=== PATIENT | female | born 1970 | race Caucasian/White ===

== ENCOUNTER 2017-05-07 10:09 | Emergency (ER) | payer MEDICAID ==
--- NOTE | 2017-05-07 10:35 | ER Document Report ---
ED Medical Screen (RME) - General Chief Complaint: Abdominal Pain Stated Complaint: ABDOMINAL PAIN Time Seen by Provider: 05/07/17 10:33 Mode of Arrival: Ambulatory Information source: Patient TRAVEL OUTSIDE OF THE [place] IN LAST 30 DAYS: No - HPI Onset: Other - "MONTHS" Onset/Duration: Worse - LAST 2 DAYS Quality of pain: Other - TIGHTNESS Severity: Moderate Associated Symptoms: denies: Chills, Dysuria, Fever, Nausea, Vomiting Exacerbated by: Movement Relieved by: Denies Similar symptoms previously: No Recently seen / treated by doctor: No - NO PCP - Related Data Allergies/Adverse Reactions: ampicillin [Ampicillin] Allergy (Verified 05/07/17 10:10) Home Medications: Current Home Medications No Home Medications 05/07/17 [History] Past Medical History - General Information source: Patient - Social History Chew tobacco use (# tins/day): No Frequency of alcohol use: None Drug Abuse: None Lives with: Spouse/Significant other - Past Medical History Cardiac Medical History: Reports: Hx Hypercholesterolemia Renal/ Medical History: Denies: Hx Peritoneal Dialysis Psychiatric Medical History: Reports: Hx Depression Past Surgical History: Reports: Hx Abdominal Surgery - hernia repair, Hx Appendectomy, Hx Bowel Surgery, Hx Section - X3, Hx Cholecystectomy, Hx Hysterectomy - Immunizations Hx Diphtheria, Pertussis, Tetanus Vaccination: Yes Review of Systems - Review of Systems Constitutional: denies: Chills, Fever, Weight loss Gastrointestinal: See HPI Musculoskeletal: See HPI Neurological/Psychological: Depression Physical Exam - Vital signs Vitals: Temp Pulse Resp BP Pulse Ox 98.1 F 87 20 151/89 H 91 L 05/07/17 10:13 05/07/17 10:13 05/07/17 10:13 05/07/17 10:13 05/07/17 10:13 Interpretation: Hypertensive, Hypoxic - General General appearance: Appears well, Alert In distress: None Course - Vital Signs Vital signs: Temp Pulse Resp BP Pulse Ox 98.1 F 87 20 151/89 H 91 L 05/07/17 10:13 05/07/17 10:13 05/07/17 10:13 05/07/17 10:13 05/07/17 10:13
[2017-05-07 11:35] LABS: ABSOLUTE BASOPHILS # (AUTO) 0.1 10^3/uL (0.0-0.2); ABSOLUTE EOSINOPHILS # (AUTO) 0.2 10^3/uL (0.0-0.6); ABSOLUTE LYMPHOCYTES (AUTO) 2.6 10^3/uL (0.5-4.7); ABSOLUTE MONOCYTES (AUTO) 0.5 10^3/uL (0.1-1.4); ABSOLUTE NEUT (AUTO) 4.5 10^3/uL (1.7-8.2); BASOPHILS % (AUTO) 0.9 % (0-2); EOSINOPHILS % (AUTO) 3.1 % (0-6); HEMATOCRIT 41.5 % (36.0-47.0); HGB HCT DIFFERENCE 0.5; LYMPHOCYTES % (AUTO) 32.9 % (13-45); MEAN CORPUSCULAR HEMOGLOBIN 28.3 pg (27.0-33.4); MEAN CORPUSCULAR HGB CONC 33.8 g/dL (32.0-36.0); MEAN CORPUSCULAR VOLUME 84 fl (80-97); MONOCYTES % (AUTO) 6.6 % (3-13); RED BLOOD COUNT 4.96 10^6/uL (3.72-5.28); RED CELL DISTRIBUTION WIDTH 14.4 % (11.5-14.0); SEGMENTED NEUTROPHILS % (AUTO) 56.5 % (42-78); WHITE BLOOD COUNT 7.9 10^3/uL (4.0-10.5)
[2017-05-07 11:57] LABS: ALANINE AMINOTRANSFERASE 65 U/L (9-52); ALBUMIN 4.2 g/dL (3.5-5.0); ALKALINE PHOSPHATASE 84 U/L (38-126); ANION GAP 13 (5-19); ASPARTATE AMINO TRANSFERASE 79 U/L (14-36); BILIRUBIN,DIRECT 0.3 mg/dL (0.0-0.4); BILIRUBIN,TOTAL 0.7 mg/dL (0.2-1.3); BLOOD UREA NITROGEN 13 mg/dL (7-20); CALCIUM 9.5 mg/dL (8.4-10.2); CARBON DIOXIDE 31 mmol/L (22-30); CHLORIDE 98 mmol/L (98-107); CREATINE KINASE 69 U/L (30-135); CREATININE RESULT 0.69 mg/dL (0.52-1.25); GLUCOSE 115 mg/dL (75-110); POTASSIUM 4.3 mmol/L (3.6-5.0); SODIUM 142.3 mmol/L (137-145); TOTAL PROTEIN 7.2 g/dL (6.3-8.2)
--- NOTE | 2017-05-07 12:00 | ER Document Report ---
ED GI/ - General Chief Complaint: Abdominal Pain Stated Complaint: ABDOMINAL PAIN Time Seen by Provider: 05/07/17 10:33 Mode of Arrival: Ambulatory Notes: 46-year-old male who presents today with "months" of some upper and lower bilateral abdominal pain. She states it is been worse the last few days. She denies any fevers, vomiting, or diarrhea. She denies any aggravating or relieving factors. She denies any chest pain or shortness of breath. Patient states in 2009 at [facility] she had a hernia repair with resection and hysterectomy. She denies any bowel obstruction since that time. TRAVEL OUTSIDE OF THE [place] IN LAST 30 DAYS: No - HPI Patient complains to provider of: Other - See above Onset: Other - See above Timing/Duration: Gradual Quality of pain: Achy, Burning Severity at maximum: Moderate Severity in ED: Mild Pain Level: 2 Location: Other - See above Vaginal bleeding (Compared to normal period): None Sexual history: Inactive Associated symptoms: Other - See above Exacerbated by: Denies Relieved by: Denies Similar symptoms previously: Yes Recently seen / treated by doctor: No - Related Data Allergies/Adverse Reactions: ampicillin [Ampicillin] Allergy (Verified 05/07/17 10:10) Past Medical History - General Information source: Patient - Social History Smoking Status: Unknown if Ever Smoked Cigarette use (# per day): No Chew tobacco use (# tins/day): No Smoking Education Provided: No Frequency of alcohol use: None Drug Abuse: None Lives with: Spouse/Significant other Family History: Reviewed & Not Pertinent Patient has suicidal ideation: No Patient has homicidal ideation: No - Past Medical History Cardiac Medical History: Reports: Hx Hypercholesterolemia Renal/ Medical History: Denies: Hx Peritoneal Dialysis Psychiatric Medical History: Reports: Hx Depression Past Surgical History: Reports: Hx Abdominal Surgery - hernia repair, Hx Appendectomy, Hx Bowel Surgery, Hx Section - X3, Hx Cholecystectomy, Hx Hysterectomy - Immunizations Hx Diphtheria, Pertussis, Tetanus Vaccination: Yes Review of Systems - Review of Systems Constitutional: denies: Fever EENT: denies: Eye discharge, Nose discharge Cardiovascular: denies: Chest pain, Palpitations Respiratory: denies: Short of breath Gastrointestinal: denies: Vomiting Genitourinary: denies: Dysuria Musculoskeletal: denies: Leg swelling Skin: Other - no hives. denies: Rash Neurological/Psychological: Other - no slurred speech -: Yes All other systems reviewed and negative Physical Exam - Vital signs Vitals: Temp Pulse Resp BP Pulse Ox 98.1 F 87 20 151/89 H 91 L 05/07/17 10:13 05/07/17 10:13 05/07/17 10:13 05/07/17 10:13 05/07/17 10:13 Notes: Reviewed vital signs and nursing note as charted by RN. CONSTITUTIONAL: Alert and oriented and responds appropriately to questions. Well -appearing; well-nourished HEAD: Normocephalic; atraumatic EYES: Sclerae non-icteric ENT: Normal nose; no rhinorrhea; moist mucous membranes; pharynx without lesions noted NECK: Supple without meningismus CARD: Regular rate and rhythm; no murmurs RESP: Normal chest excursion without splinting or tachypnea; breath sounds clear and equal bilaterally; no wheezes, no rhonchi, no rales ABD/GI: Normal bowel sounds; very elevated BMI. Patient has an epigastric appearing hernia that she states has been present since her surgery in 2009. No obvious focal tenderness. No rebound or guarding. No abdominal bruits present BACK: The back appears normal and is non-tender to palpation, there is no CVA tenderness EXT: Normal ROM in all joints; non-tender to palpation; no cyanosis, no effusions, no edema SKIN: Normal color for age and race; warm; dry; good turgor; capillary refill < 2 seconds; no acute lesions noted NEURO: Moves all extremities equally; Motor and sensory function intact PSYCH: The patient's mood and manner are appropriate. Grooming and personal hygiene are appropriate. Course - Re-evaluation Re-evalutation: 05/07/17 11:59 Given the history and physical examination we will order basic labs, abdominal labs, urinalysis, and CT scan of the abdomen and pelvis. We will reassess the patient's abdomen. I would like to evaluate for pancreatitis, liver abnormality , obstruction, or other acute intra-abdominal pathology. 05/07/17 12:01 X-ray of the abdomen shows a persistent right-sided elevated hemidiaphragm. No signs of bowel obstruction. 05/07/17 13:55 CT scan as recorded. Patient has artery had a cholecystectomy. Urinalysis as recorded. Urine culture has been sent. I will start the patient on antibiotics with strict return precautions as well as a short course of pain medications. - Vital Signs Vital signs: Temp Pulse Resp BP Pulse Ox 98.1 F 87 20 151/89 H 91 L 05/07/17 10:13 05/07/17 10:13 05/07/17 10:13 05/07/17 10:13 05/07/17 10:13 - Laboratory Result Diagrams: 05/07/17 11:20 05/07/17 11:20 Laboratory results interpreted by me: 05/07/17 05/07/17 05/07/17 11:20 11:20 11:20 RDW 14.4 H Carbon Dioxide 31 H Glucose 115 H AST 79 H ALT 65 H Urine Blood MODERATE H Ur Leukocyte Esterase TRACE H Discharge - Discharge Clinical Impression: Abdominal discomfort UTI (urinary tract infection) Qualifiers: Urinary tract infection type: acute cystitis Hematuria presence: without hematuria Qualified Code(s): N30.00 - Acute cystitis without hematuria Condition: Good Disposition: HOME, SELF-CARE Instructions: Urinary Tract Infection ([facility]), Abdominal Pain ([facility]) Additional Instructions: Come back immediately for any increased pain, fevers, vomiting, excessive diarrhea, or any other acute problems. Please make sure that she follow-up with your primary doctor regarding the urine culture as we have discussed. Prescriptions: Hydrocodone/Acetaminophen [Drake 5-325 Tablet] 1 each PO Q6 PRN #12 tablet PRN Reason: For Pain Ondansetron [Zofran Odt 4 mg Tablet] 1 tab PO Q6H #15 tab.rapdis Sulfamethoxazole/Trimethoprim [Bactrim Ds Tablet] 1 each PO BID #20 tablet
--- NOTE | 2017-05-07 12:30 | RADIOLOGY REPORT (SQ) ---
EXAM DESCRIPTION: ACUTE ABDOMEN SERIES COMPLETED DATE/TIME: 05/07/2017 12:09 pm REASON FOR STUDY: ABD. PAIN COMPARISON: None. NUMBER OF VIEWS: Three views. TECHNIQUE: Frontal chest, supine abdomen and upright/decubitus abdomen radiographic images acquired. LIMITATIONS: None. FINDINGS: CHEST: No infiltrates. The right hemidiaphragm is elevated. FREE AIR: None. No abnormal gas collections. BOWEL GAS PATTERN: Nonobstructive pattern. No dilated loops or air fluid levels. CALCIFICATIONS: No suspicious calcifications. HARDWARE: None in the abdomen. SOFT TISSUES: No gross mass or suggestion of organomegaly. BONES: No acute fracture. No worrisome bone lesions. OTHER: No other significant finding. IMPRESSION: NO RADIOGRAPHIC EVIDENCE FOR ACUTE ABDOMINAL DISEASE. TECHNICAL DOCUMENTATION: JOB ID: [id number] [employer]- All Rights Reserved
--- NOTE | 2017-05-07 12:54 | RADIOLOGY REPORT (SQ) ---
EXAM DESCRIPTION: CT ABD/PELVIS WITH IV ONLY COMPLETED DATE/TIME: 05/07/2017 12:36 pm REASON FOR STUDY: 41, bilateral abdominal pain, upper and lower COMPARISON: None. TECHNIQUE: CT scan of the abdomen and pelvis performed using helical scanning technique with dynamic intravenous contrast injection. No oral contrast. Images reviewed with lung, soft tissue, and bone windows. Reconstructed coronal and sagittal MPR images reviewed. Delayed images for evaluation of the urinary system also acquired. All images stored on PACS. All CT scanners at this facility use dose modulation, iterative reconstruction, and/or weight based d osing when appropriate to reduce radiation dose to as low as reasonably achievable (ALARA). [facility]: Dose Right [facility]: CareDose [facility]: Dose Right [facility]: Teradose 4D [facility]: CloudSafe CONTRAST TYPE AND DOSE: 100 cc Isovue 370- low osmolar. RENAL FUNCTION: Creatinine 0.7 BUN 13 RADIATION DOSE: . LIMITATIONS: None. FINDINGS: LOWER CHEST: No significant findings. No nodules or infiltrates. LIVER: Enlarged. Decreased attenuation. No masses. SPLEEN: Normal size. No focal lesions. PANCREAS: No masses. No significant calcifications. No adjacent inflammation or peripancreatic fluid collections. Pancreatic duct not dilated. GALLBLADDER: Surgically absent. ADRENAL GLANDS: No significant masses or asymmetry. RIGHT KIDNEY AND URETER: No solid masses. No significant calcifications. No hydronephrosis or hyd roureter. LEFT KIDNEY AND URETER: No solid masses. No significant calcifications. No hydronephrosis or hydr oureter. AORTA AND VESSELS: No aneurysm. No dissection. Renal arteries, SMA, celiac without stenosis. RETROPERITONEUM: No retroperitoneal adenopathy, hemorrhage or masses. BOWEL AND PERITONEAL CAVITY: Diverticula arise from the distal transverse colon, descending colon, an d sigmoid colon. No acute inflammatory changes are present. By history there has been a partial bow el resection. Suture is seen in the bowel in the midline on images 59 through 66. APPENDIX: Surgically absent. PELVIS: Uterus is absent. Urinary bladder is normal. ABDOMINAL WALL: There is a 35 mm wide ventral hernia seen on image 51 series 5. This contains only m esenteric fat BONES: Grade 1 anterolisthesis of L5 on S1. No osseous lesions are seen. OTHER: No other significant finding. IMPRESSION: 1. Marked hepatomegaly with fatty infiltration. 2. Diverticulosis coli. 3. Ventral hernia contains only fat. 4. Osseous findings as described. TECHNICAL DOCUMENTATION: JOB ID: [id number] Quality ID # [id number]: Final reports with documentation of one or more dose reduction techniques (e.g., Au tomated exposure control, adjustment of the mA and/or kV according to patient size, use of iterative reconstruction technique) 2010 [employer]- All Rights Reserved
[2017-05-07 13:12] LABS: APPEARANCE,URINE CLEAR; BILIRUBIN,URINE NEGATIVE (NEGATIVE); GLUCOSE, URINE NEGATIVE (NEGATIVE); KETONES,URINE NEGATIVE (NEGATIVE); LEUKOCYTE ESTERASE,URINE TRACE (NEGATIVE); NITRITE,URINE NEGATIVE (NEGATIVE); PROTEIN,URINE NEGATIVE (NEGATIVE); URINE SPECIFIC GRAVITY 1.005; UROBILINOGEN,URINE NEGATIVE mg/dL (<2.0)
[2017-05-07 14:21] VITALS: BP 124/70
== END 2017-05-07 14:22 | disposition home or self-care (01) ==
LOC: ER 10:09
DX: N30.00 Acute cystitis without hematuria (principal); R10.9 Unspecified abdominal pain; R10.31 Right lower quadrant pain; R10.32 Left lower quadrant pain
CPT/HCPCS: 36415; 74022; 74177; 80053; 81001; 82550; 83690; 85025; 87086; 87088; 87186; 99284

== ENCOUNTER 2017-07-17 13:53 | Emergency (ER) | payer MEDICAID ==
[2017-07-17 14:48] VITALS: BP 115/89
[2017-07-17] MEDS ORDERED: DEXAMETHASONE SOD PHOS INJ 10 MG/1 ML VIAL IM ONE (15:05)
--- NOTE | 2017-07-17 15:06 | ER Document Report ---
HPI - HPI Pain Level: 3 Notes: Patient is a 47-year-old female with a history of type 2 diabetes and obesity as well as former smoking who presents to the ED complaining of a dry nonproductive cough, fever, body ache 3 days. Patient states that she does have a nebulizer machine at home but has not had use it. She is eating and drinking without difficulties. She is urinating normally and having normal bowel movements. Patient states that she is ambulatory without any worsening symptoms or dyspnea on exertion. Patient has not been using any over-the- counter meds for her symptoms. Denies any headache, neck pain, sore throat, chest pain, palpitations, syncope, shortness of breath, wheeze, dyspnea, abdominal pain, nausea/vomiting/diarrhea, urinary retention, dysuria, hematuria , or rash. - ROS Systems Reviewed and Negative: Yes All other systems reviewed and negative - REPRODUCTIVE Reproductive: DENIES: : Past Medical History - Social History Smoking Status: Former Smoker Family History: Reviewed & Not Pertinent - Past Medical History Cardiac Medical History: Reports: Hx Hypercholesterolemia Renal/ Medical History: Denies: Hx Peritoneal Dialysis Psychiatric Medical History: Reports: Hx Depression Past Surgical History: Reports: Hx Abdominal Surgery - hernia repair, Hx Appendectomy, Hx Bowel Surgery, Hx Section - X3, Hx Cholecystectomy, Hx Hysterectomy - Immunizations Hx Diphtheria, Pertussis, Tetanus Vaccination: Yes Vertical Provider Document - CONSTITUTIONAL Agree With Documented VS: Yes Notes: PHYSICAL EXAMINATION: GENERAL: Well-appearing, well-nourished and in no acute distress. A&Ox4. Answers questions appropriately. Moves comfortably w/o notable distress HEAD: Atraumatic, normocephalic. EYES: Pupils equal round and reactive to light, extraocular movements intact, sclera anicteric, conjunctiva are normal. ENT: EAC clear b/l. TM's intact b/l without erythema, fluid, or perforation. Nares patent and with clear discharge. oropharynx no erythema without exudates. No tonsilar hypertrophy without erythema or exudate. No palatine shift. Uvula midline. No tongue protrusion. No drooling, hoarseness, or airway compromise. Moist mucous membranes. No sinus tenderness. NECK: Normal range of motion, supple without lymphadenopathy. No rigidity/ meningismus. LUNGS: very scant wheeze left side on expiration only. Lungs clear otherwise. No retractions HEART: Regular rate and rhythm without murmurs, rubs, gallops. ABDOMEN: Soft, nontender, nondistended abdomen. No guarding, no rebound. No masses appreciated. Normal bowel sounds present. No CVA tenderness bilaterally. No hepatosplenomegaly. NEUROLOGICAL: Normal speech, normal gait. Normal sensory, motor exams PSYCH: Normal mood, normal affect. SKIN: Warm, Dry, normal turgor, no rashes or lesions noted. - INFECTION CONTROL TRAVEL OUTSIDE OF THE [place] IN LAST 30 DAYS: No - RESPIRATORY O2 Sat by Pulse Oximetry: 94 Course - Re-evaluation Re-evalutation: 07/17/17 15:03 Patient is an afebrile, well-hydrated, 47-year-old female who presents to the ED with acute URI, suspect influenza. Vitals are stable. PE is otherwise unremarkable. No labs or imaging warranted at this time based on H&P. I did thoroughly review the risks and benefits as well as side effects of Tamiflu and her risk factors of obesity, former smoking, and diabetes. Patient declined Tamiflu at this time. Patient's lungs are clear to auscultation bilaterally without tachycardia, hypoxia, or tachypnea. Patient is tolerating p.o. without any difficulties. I will send her home with a prescription for Tessalon and albuterol nebulizer. Decadron given today. Low suspicion for any meningitis, sepsis, peritonsillar/pharyngeal abscess, respiratory compromise, severe dehydration, or other emergent systemic condition at this time. Patient is aware this condition can change from initial presentation and she needs to monitor symptoms closely. Conservative measures otherwise for symptoms. Recheck with your PCM in 3-5 days. Return to the ED with any worsening/ concerning symptoms otherwise as reviewed in discharge. Patient is in agreement. - Vital Signs Vital signs: Temp Pulse Resp BP Pulse Ox 98.4 F 99 20 115/89 H 94 07/17/17 14:07 07/17/17 14:07 07/17/17 14:07 07/17/17 14:07 07/17/17 14:07 Discharge - Discharge Clinical Impression: Acute URI Condition: Stable Disposition: HOME, SELF-CARE Instructions: Upper Respiratory Illness ([facility]), Influenza ([facility]) Additional Instructions: Maintain adequate fluid intake Take meds as directed tylenol/ibuprofen as needed over the counter cold medication as needed for symptoms Humidified air may help Wash your hands regularly Wear a mask when coughing F/u: with your PCM in 3-5 days for a recheck Return to the ED with any fever, worsening pain, chest pain, palpitations, syncope, worsening MACHUCA, neck pain/stiffness, shortness of breath, wheezing, drooling, trouble swallowing/breathing, abdominal pain, n/v/d, rash, or worsening/concerning symptoms otherwise. Prescriptions: Benzonatate [Tessalon Perle 100 mg Capsule] 100 mg PO Q8HP PRN #15 cap PRN Reason: Albuterol Sulfate [Albuterol Sulfate 2.5mg/3 mL] 1 vial IH Q4 PRN #10 vial PRN Reason: Forms: Elevated Blood Pressure Referrals: YANICK BRANDON FNP-C [NO LOCAL MD] - Follow up in 3-5 days
== END 2017-07-17 16:08 | disposition home or self-care (01) ==
LOC: ER 13:53
DX: J06.9 Acute upper respiratory infection, unspecified (principal); E11.9 Type 2 diabetes mellitus without complications; E66.9 Obesity, unspecified; R05 Cough; R50.9 Fever, unspecified; M79.1 Myalgia; Z87.891 Personal history of nicotine dependence
CPT/HCPCS: 99283; 96372; J1100

== ENCOUNTER 2017-08-02 09:17 | Emergency (ER) | payer MEDICAID ==
--- NOTE | 2017-08-02 09:54 | ER Document Report ---
ED General - General Chief Complaint: Cough Stated Complaint: CONGESTION, COUGH, BACK PAIN Time Seen by Provider: 08/02/17 09:51 Mode of Arrival: Ambulatory Information source: Patient Notes: Patient is a 47 year old female with PMHx of obesity, type II DM (controlled on metformin), former smoker who presents with 2 week history of intermittent nonproductive cough, chest congestion, and back pain worse with cough. States she was seen here 2 weeks ago, no testing or xrays were done; she initially felt better and then the symptoms returned. She states at that time she had fever (Tmax 101.7F) but has not had any since. Denies chest pain, SOB, headache , neck/pain stiffness, n/v/d. She has tried multiple OTC medications with no relief. Speaking in full sentences without difficulty. TRAVEL OUTSIDE OF THE [place] IN LAST 30 DAYS: No - Related Data Allergies/Adverse Reactions: ampicillin [Ampicillin] Allergy (Verified 07/17/17 13:55) Past Medical History - General Information source: Patient - Social History Smoking Status: Former Smoker Family History: Reviewed & Not Pertinent - Past Medical History Cardiac Medical History: Reports: Hx Hypercholesterolemia Renal/ Medical History: Denies: Hx Peritoneal Dialysis Psychiatric Medical History: Reports: Hx Depression Past Surgical History: Reports: Hx Abdominal Surgery - hernia repair, Hx Appendectomy, Hx Bowel Surgery, Hx Section - X3, Hx Cholecystectomy, Hx Hysterectomy - Immunizations Hx Diphtheria, Pertussis, Tetanus Vaccination: Yes Review of Systems - Review of Systems Constitutional: See HPI EENT: See HPI Cardiovascular: No symptoms reported Respiratory: See HPI Gastrointestinal: No symptoms reported Genitourinary: No symptoms reported Female Genitourinary: No symptoms reported Musculoskeletal: See HPI Skin: No symptoms reported Hematologic/Lymphatic: No symptoms reported Neurological/Psychological: No symptoms reported Physical Exam - Vital signs Vitals: Temp Pulse Resp BP Pulse Ox 98.5 F 97 18 115/66 93 08/02/17 09:22 08/02/17 09:22 08/02/17 09:22 08/02/17 09:22 08/02/17 09:22 - Notes Notes: PHYSICAL EXAM: CONSTITUTIONAL: Alert and oriented, well-appearing and in no acute distress. Speaking in full sentences without difficulty. HENT: Normocephalic, atraumatic. Ear canals without erythema or foreign body, TMs pearly adair with good bony landmarks. Nares clear without erythema, septal hematoma or deviation, airway patent. Oropharynx clear without erythema, tonsilar exudate or malocclusion. Trachea midline. Uvula midline. Moist mucous membranes. EYES: Pupils equal round and reactive to light, EOM intact. Sclera anicteric, conjunctiva are normal. No entrapment. NECK: supple without lymphadenopathy. No midline tenderness or paraspinous muscle spasms. No step-offs or deformities. ROM intact. HEART: Regular rate and rhythm without murmurs. LUNGS: CTAB and equal. No wheezes, rales or rhonchi. Non-productive cough noted during exam. GI: Obese. Normactive bowel sounds. Nontender, non-distended. No organomegaly. no CVAT. BACK: FROM to passive/active. Strength 5+/5. No vertebral point tenderness, step -offs, or deformities. EXTREMITIES: no bony tenderness, erythema, edema, ecchymosis or deformity. Normal range of motion, no pitting edema. No cyanosis. Cap Refill <3 seconds. NEURO: Cranial nerves grossly intact. Normal sensory/motor exams. PSYCH: Normal mood, normal affect. SKIN: Warm and dry. Normal turgor. No rashes or lesions noted. Course - Re-evaluation Re-evalutation: 08/02/17 09:54 Patient seen and examined. Well appearing, well hydrated, non-toxic in appearance. Speaking in full sentences without difficulty, nonproductive cough noted intermittently during exam. Lungs CTAB, patient requesting duoneb. Will obtain CXR. 08/02/17 11:14 Reviewed imaging and results - negative for acute abnormalities; discussed with patient. Will treat as bronchitis. Low suspicion at this time for PE, PNA, ACS, AAA, sepsis or other emergent conditions. At this time, will discharge with return precautions and follow-up recommendations. Verbal discharge instructions given at the bedside and opportunity for questions given. Medication warnings reviewed. Patient is in agreement with this plan and has verbalized understanding of return precautions and the need for primary care follow-up in the next 24-72 hours. - Vital Signs Vital signs: Temp Pulse Resp BP Pulse Ox 98.5 F 97 18 115/66 93 08/02/17 09:22 08/02/17 09:22 08/02/17 09:22 08/02/17 09:22 08/02/17 09:22 - Diagnostic Test Radiology reviewed: Image reviewed, Reports reviewed Discharge - Discharge Clinical Impression: Acute bronchitis Qualifiers: Bronchitis organism: unspecified organism Qualified Code(s): J20.9 - Acute bronchitis, unspecified Condition: Stable Disposition: HOME, SELF-CARE Additional Instructions: BRONCHITIS: You have acute bronchitis. This disease is an infection or inflammation of the air passageways in your lungs. Symptoms usually include cough, low grade fever, shortness of breath, and wheezing. The cough usually persists for a couple of weeks. Most cases of bronchitis get better without antibiotics. We prescribe antibiotics when we believe bacteria are damaging your airways, or if there's high risk the bronchitis will worsen into pneumonia. Increase your fluid intake. A cool mist humidifier may make your lungs more comfortable. An expectorant (cough medicine that loosens phlegm) can help. If you smoke, STOP!!! Recovery from bronchitis can be somewhat slow, but you should see improvement within a day or two. Repeated episodes of bronchitis may result in lung damage -- for example, chronic bronchitis, recurrent pneumonias, or emphysema. Call the doctor if you develop increasing fever, shortness of breath, chest pain, bloody sputum, or otherwise worsen. If you have not improved at all after several days, contact the physician. BRONCHITIS WITH BRONCHOSPASM (WHEEZING): You have bronchitis with bronchospasm (wheezing). Sometimes people develop wheezing with a chest cold. This occurs either because of an underlying tendency toward asthma or because the virus itself irritates the bronchial tubes. This irritation causes cough, shortness of breath, and wheezing. Emergency treatment of bronchospasm may include adrenaline shots or bronchodilator aerosol. You may feel lightheaded and have a rapid pulse for an hour or two. Rest and get plenty of fluids. At home, we'll treat you with a bronchodilator inhaler. Corticosteroids may be required for some patients. Until you recover, avoid chemical fumes, dusts, pollens, and exercising in very cold or dry air. If you smoke, stop now! Most cases of bronchitis get better without antibiotics. We prescribe antibiotics when we believe bacteria are damaging your airways, or if there's high risk the bronchitis will worsen into pneumonia. Increase your fluid intake. A cool mist humidifier may make your lungs more comfortable. An expectorant (cough medicine that loosens phlegm) can help. Repeated episodes of bronchitis and bronchospasm may result in lung damage -- for example, chronic bronchitis, recurrent pneumonias, or emphysema. If you develop a fever, increased wheezing, chest pain, or severe shortness of breath, you should contact the doctor immediately. DECONGESTANT MEDICATION: A decongestant medicine has been prescribed. Often this medicine is combined in the same tablet with an antihistamine or expectorant. This type of medicine is helpful in treating a bad cold or sinus condition, as well as in treatment of the nasal congestion of hay fever. It is not of much benefit for lung infections. Decongestant medicines are related to stimulants. They can cause an increase in blood pressure and heart rate. Persons with heart disease and high blood pressure should not take decongestants without discussing this with the physician. If you develop palpitations, chest pain, headache, or tremors, stop the medicine and consult your physician. COUGH-SUPPRESSANT & EXPECTORANT MEDICATION: You are to use a cough medication as needed for relief of symptoms. This medicine is a combination of an expectorant (to make the mucous thinner and more easily "coughed up") and a cough suppressant (to reduce the frequency of coughing). The cough-suppressant medicine is related to narcotics. You may experience mild nausea and sleepiness. Some patients who are very sensitive to narcotics may have stomach pain from this medicine. Taking the medicine with food reduces these side effects. Do not drive or work with machinery until you know how this medicine affects you. The expectorant should have no side effects. Iodine-containing expectorants (such as organidin) should not be taken by persons with active thyroid disease unless approved by your doctor. Call the doctor if you develop shortness of breath, hives, rash, itching, lightheadedness, or severe nausea and vomiting. INHALED BRONCHODILATORS: You have received a treatment of and/or prescription for an inhaled bronchodilator -- a medication which stimulates the airways in the lung to dilate. This improves the flow of air in asthma, bronchitis, and emphysema. These medicines have some similarity to adrenaline, and can cause similar side effects: shakiness, racing heart, and a sense of nervousness. These side effects decrease with time. Contact your doctor if these side effects are severe. Do not over-use the medicine. Too-frequent use of the inhaler may make it ineffective. Call your doctor if the inhaler is not controlling your symptoms at the prescribed doses. STEROID MEDICATION: You have been given an injection of or oral medicine of the cortisone/ steroid class. This medication is used to control inflammation or allergy. Cruz t is usually only given for a short period of time, until the acute process subsides. There are usually no side effects from short-term use of cortisone-like medications. Some persons feel an increased sense of well-being and are not sleepy at bedtime. Long-term use of cortisone medications is best avoided, unless required for a severe condition. If your condition does not remit, or relapses after the course of corticosteroid medication, you should consult your physician. ANTIBIOTIC THERAPY: You have been given an antibiotic prescription. It's important that you take all the medication, unless instructed otherwise by your physician. Failure to complete the entire course can result in relapse of your condition. Common side effects of antibiotics include nausea, intestinal cramping, or diarrhea. Women may develop vaginal yeast infections, and babies can get yeast (thrush) in the mouth following the use of antibiotics. Contact your physician if you develop significant side effects from this medication. Allergy to this antibiotic can result in hives, wheezing, faintness, or itching. If symptoms of allergy occur, stop the medication and call your doctor. AMOXICILLIN: Amoxicillin is a member of the penicillin family. It covers the germs likely to cause ear, bronchial, and urinary infections better than plain penicillin. Amoxicillin can be taken without regard to meals. Nausea after taking the medication is rare, but can occur. Diarrhea can occur, particularly in small children. Vaginal yeast infections and oral thrush in infants are also common. Contact your physician if these problems occur. Allergy to penicillins is common. If you have had an allergic reaction to any drug of the penicillin family, you should never take any other penicillin. Notify your doctor at once if you develop hives, itching, swelling, faintness, or shortness of breath. Less serious side effects can include nausea or diarrhea. USE OF ACETAMINOPHEN (Tylenol): Acetaminophen may be taken for pain relief or fever control. It's much safer than aspirin, offering a wider range of "safe" dosages. It is safe during . Some brand names are Tylenol, Panadol, Datril, Anacin 3, Tempra, and Liquiprin. Acetaminophen can be repeated every four hours. The following are maximum recommended dosages: >89 pounds or adults 650 mg to 900 mg Acetaminophen can be repeated every four hours. Maximum dose not to exceed 4000 mg a day. SMOKING: If you smoke, you should stop smoking. The tar and chemicals in cigarette smoke are harmful. Smoking has been shown to cause: emphysema chronic bronchitis lung cancer mouth and throat cancer stomach and pancreas cancer premature aging defects In addition, smoking increases ear and lung infections in children of smokers. FOLLOW-UP CARE: If you have been referred to a physician for follow-up care, call the physician s office for an appointment as you were instructed or within the next two days. If you experience worsening or a significant change in your symptoms, notify the physician immediately or return to the Emergency Department at any time for re-evaluation. Prescriptions: Guaifenesin/D-Methorphan Hb [Guaifenesin-Dextromethorph Tab] 1 each PO Q12HP PRN #8 tab.sr.[id number] PRN Reason: Cough Albuterol Sulfate [Proair HFA Inhalation Aerosol 8.5 gm MDI] 2 puff IH Q4H PRN # 1 mdi PRN Reason: Azithromycin [Zithromax 250 mg Tablet] 250 mg PO ASDIR #6 tablet Methylprednisolone [Medrol Dosepack (4 mg/Tab) 21 Tab/Dosepak] 4 mg PO ASDIR PRN #21 tab.ds.pk PRN Reason:
[2017-08-02] MEDS ORDERED: IPRATROPIUM/ALBUTEROL 0.5-2.5 MG/3 ML AMPUL NEB ONE (10:04)
[2017-08-02] MEDS ORDERED: BENZONATATE 100 MG CAPSULE PO ONE (10:05)
--- NOTE | 2017-08-02 10:56 | RADIOLOGY REPORT (SQ) ---
EXAM DESCRIPTION: CHEST PA/LAT COMPLETED DATE/TIME: 08/02/2017 10:48 am REASON FOR STUDY: cough, congestion COMPARISON: 03/11/2016 EXAM PARAMETERS: NUMBER OF VIEWS: two views TECHNIQUE: Digital Frontal and Lateral radiographic views of the chest acquired. RADIATION DOSE: NA LIMITATIONS: none FINDINGS: LUNGS AND PLEURA: Stable elevation right hemidiaphragm with associated atelectasis. Lungs and pleural spaces otherwise clear. MEDIASTINUM AND HILAR STRUCTURES: No masses or contour abnormalities. HEART AND VASCULAR STRUCTURES: Heart stable in size. No evidence for failure. BONES: No acute findings. HARDWARE: None in the chest. OTHER: No other significant finding. IMPRESSION: NO ACUTE CARDIOPULMONARY PROCESS. NO SIGNIFICANT CHANGE FROM PRIOR STUDY TECHNICAL DOCUMENTATION: JOB ID: [id number] [employer]- All Rights Reserved Reading location - IP/workstation name: [email or web address]
[2017-08-02 11:52] VITALS: BP 112/57
== END 2017-08-02 11:54 | disposition home or self-care (01) ==
LOC: ER 09:17
DX: J20.9 Acute bronchitis, unspecified (principal); R05 Cough; R09.81 Nasal congestion; M54.9 Dorsalgia, unspecified; E66.9 Obesity, unspecified; E11.9 Type 2 diabetes mellitus without complications; R09.89 Other specified symptoms and signs involving the circulatory and respiratory systems; Z87.891 Personal history of nicotine dependence
CPT/HCPCS: 94640; 99283; 71046; J3490; J7620

== ENCOUNTER 2017-10-18 08:52 | Emergency (ER) | payer MEDICAID ==
[2017-10-18 08:59] VITALS: BP 124/74
[2017-10-18] MEDS ORDERED: IBUPROFEN 800 MG TABLET PO ONE (09:24)
--- NOTE | 2017-10-18 09:30 | ER Document Report ---
ED Extremity Problem, Lower - General Chief Complaint: Knee Pain Stated Complaint: RIGHT KNEE PAIN Time Seen by Provider: 10/18/17 09:14 Mode of Arrival: Ambulatory Information source: Patient Notes: 47-year-old female presents to ED for complaint of pain and injury to the right knee. She states that 2 days ago she was walking her dog and the dog lunged for the mailman. She states when the dog lunch she felt a pop in the back of her knee and is been hurting since then which was on Thursday. She states she has not been seen by a provider and is been taken naproxen and Tylenol but has not had any medications this morning. She is able to walk has full range of motion to the knee has tenderness to the medial and posterior aspects of the knee. She is alert oriented, pupils equal and react to light, speaks in full sentences, and is able to walk with steady gait. TRAVEL OUTSIDE OF THE [place] IN LAST 30 DAYS: No - HPI Patient complains to provider of: Injury, Pain Location: Knee - Right Occurred: Other - Thursday which was 2 days ago Where: Outdoors, Public place Onset/Duration: Persistent Quality of pain: Achy, Sharp Severity: Moderate Pain Level: 2 Context: Other - Lunged when the dog tried to get away here in a pop in the back of her knee Recent injury: Possibly Associated symptoms: Knott a pop Exacerbated by: Hanging down, Movement, Walking Relieved by: Nothing, Other - Warm - Related Data Allergies/Adverse Reactions: ampicillin [Ampicillin] Allergy (Verified 07/17/17 13:55) Past Medical History - General Information source: Patient - Social History Smoking Status: Former Smoker Cigarette use (# per day): No Chew tobacco use (# tins/day): No Smoking Education Provided: No Frequency of alcohol use: None Drug Abuse: None Occupation: Disabled Lives with: Spouse/Significant other Family History: Reviewed & Not Pertinent Patient has suicidal ideation: No Patient has homicidal ideation: No - Past Medical History Cardiac Medical History: Reports: Hx Hypercholesterolemia, Hx Hypertension Pulmonary Medical History: Reports: None EENT Medical History: Reports: None Neurological Medical History: Reports: None Endocrine Medical History: Reports: Hx Diabetes Mellitus Type 2 Renal/ Medical History: Reports: Other - States she has had her left ovary left tube and uterus removed has cervix Malignancy Medical History: Reports: None GI Medical History: Reports: None Musculoskeltal Medical History: Reports Hx Musculoskeletal Trauma - Fractured pelvis fractured ribs Skin Medical History: Reports None Psychiatric Medical History: Reports: None, Hx Depression Traumatic Medical History: Reports: Hx Fractures - Pelvis and ribs Infectious Medical History: Reports: None Past Surgical History: Reports: Hx Abdominal Surgery, Hx Appendectomy, Hx Bowel Surgery - Bowel resection, Hx Section - X3, Hx Cholecystectomy, Hx Hysterectomy, Hx Inguinal Hernia, Hx Oral Surgery - Multiple teeth removed, Hx Umbilical Hernia - Immunizations Hx Diphtheria, Pertussis, Tetanus Vaccination: Yes Review of Systems - Review of Systems Constitutional: No symptoms reported EENT: No symptoms reported Cardiovascular: No symptoms reported Respiratory: No symptoms reported Gastrointestinal: No symptoms reported Genitourinary: No symptoms reported Female Genitourinary: No symptoms reported Musculoskeletal: Joint pain - Right knee pain to the lateral posterior aspects Skin: No symptoms reported Hematologic/Lymphatic: No symptoms reported Neurological/Psychological: No symptoms reported Physical Exam - Vital signs Vitals: Temp Pulse Resp BP Pulse Ox 97.9 F 95 20 124/74 90 L 10/18/17 08:58 10/18/17 08:58 10/18/17 08:58 10/18/17 08:58 10/18/17 08:58 Interpretation: Normal - General General appearance: Appears well, Alert - HEENT Head: Normocephalic, Atraumatic Eyes: Normal Pupils: PERRL - Respiratory Respiratory status: No respiratory distress Chest status: Nontender Breath sounds: Normal Chest palpation: Normal - Cardiovascular Rhythm: Regular Heart sounds: Normal auscultation Murmur: No - Abdominal Inspection: Normal Distension: No distension Bowel sounds: Normal Tenderness: Nontender Organomegaly: No organomegaly - Back Back: Normal, Nontender - Extremities General upper extremity: Normal inspection, Nontender, Normal color, Normal ROM , Normal temperature General lower extremity: Normal color, Normal ROM, Normal temperature, Normal weight bearing. No: Jimena's sign Knee: Tender, Pain with ROM, Patellar tendon intact, Popliteal fossa tender, Tender joint line - Neurological Neuro grossly intact: Yes Cognition: Normal Orientation: AAOx4 [place] Coma Scale Eye Opening: Spontaneous [place] Coma Scale Verbal: Oriented [place] Coma Scale Motor: Obeys Commands [place] Coma Scale Total: 15 Speech: Normal Motor strength normal: LUE, RUE, LLE, RLE Sensory: Normal - Psychological Associated symptoms: Normal affect, Normal mood - Skin Skin Temperature: Warm Skin Moisture: Dry Skin Color: Normal Course - Re-evaluation Re-evalutation: 10/18/17 13:15 X-rays discussed with patient and written report of x-rays given to patient follow-up with orthopedics. Patient was treated with ice and Edgardo wraps. Patient was given crutches for use for ambulation. Patient was instructed on use of ice elevation ibuprofen and Tylenol for her pain. Patient is to follow- up with orthopedics. - Vital Signs Vital signs: Temp Pulse Resp BP Pulse Ox 97.9 F 95 18 124/74 97 10/18/17 08:58 10/18/17 08:58 10/18/17 10:09 10/18/17 08:58 10/18/17 10:09 - Diagnostic Test Radiology reviewed: Image reviewed, Reports reviewed Procedures - Immobilization Right Knee Time completed: 10:07 Immobilizer type: Edgardo wrap, Crutches Performed by: PCT Post-Proc Neuro Vasc Exam: Normal Alignment checked and good: Yes Discharge - Discharge Clinical Impression: Right knee injury Qualifiers: Encounter type: initial encounter Qualified Code(s): S89.91XA - Unspecified injury of right lower leg, initial encounter Condition: Stable Disposition: HOME, SELF-CARE Additional Instructions: SUSPECTED INTERNAL KNEE INJURY: The examiner of your injured knee suspects an internal injury to the cartilage or internal ligaments. This must be further investigated by an product marketing specialist. The knee should be protected, ice packed, and elevated while awaiting your follow-up exam by the orthopedist. If there is severe swelling, severe pain, or any new symptoms while awaiting your exam, you should call the orthopedist. (If he/she is unavailable, call us or return for re-examination.) Edgardo Wrap A compression dressing (edgardo wrap) has been placed. This helps hold the area still. It limits swelling and internal bleeding. The wrap should be comfortably snug -- not tight. You should feel a sense of pressure, but not severe pain under the wrap. Unless the physician tells you otherwise, you can adjust the wrap for comfort. If the wrap causes symptoms suggesting it's too tight -- uncomfortable pressure, swelling or discoloration beyond the wrap, numbness, or severe pain - - you must loosen the wrap. If these symptoms don't resolve promptly, return for re-evaluation. USE OF CRUTCHES: The doctor has recommended that you not bear weight at this time. You will need to use crutches. Adjust the crutches so the tops come to about two inches under the armpit while you are standing upright. Use your hands -- not your armpits -- to support your weight. To get into a chair, support yourself with one crutch on the injured side. Hold the chair with the other hand, then lower yourself while putting all your weight on the good leg. Going up stairs is `good leg up, step up, then bring up crutches and bad leg.' Down stairs is `bad leg and crutches down, then bring good leg down.' If you develop numbness or swelling in an arm or hand, you are using the crutches incorrectly. Return if you are having any problems with the crutches. ICE & ELEVATION: Apply ice packs frequently against the painful area. Many different schedules are recommended, such as "20 minutes on, 20 minutes off" or "one hour ice, two hours rest." If you need to work, you may need to go longer between ice treatments. You should plan to have the area ice packed AT LEAST one- fourth of the time. The ice should be applied over the wrap, tape, or splint, or over a layer of cloth -- not directly against the skin. Some ice bags have a built-in cloth and can be put directly on the skin. Your injured part should be elevated as much as possible over the next 48 hours. Try to keep the injury above the level of the heart. Avoid use of the injured area. Elevation and rest will decrease the swelling. USE OF [id number] IBUPROFEN: Ibuprofen (Advil, Nuprin, Medipren, Motrin IB) is a medication for fever and pain control. In addition, it has anti- inflammatory effects which may be beneficial, especially in the treatment of injuries. It's best to take ibuprofen with food. Persons with ulcer disease or allergy to aspirin should notify their physician of this before taking ibuprofen. Ibuprofen can be given every four to six hours, for a total of four doses daily. Age Pain or fever dose Antiinflammatory dose 6-8 yr 200 mg (1 tab) 200 mg (1 tab) 9-11 yr 200 mg (1 tab) 200-400 mg (1-2 tab) 11-14 yr 200-400 mg (1-2 tab) 400 mg (2 tab) 15-adult 400 mg (2 tab) 600 mg (3 tab) FOLLOW-UP CARE: If you have been referred to a physician for follow-up care, call the physician s office for an appointment as you were instructed or within the next two days. If you experience worsening or a significant change in your symptoms, notify the physician immediately or return to the Emergency Department at any time for re-evaluation. Prescriptions: Naproxen 500 mg PO BIDP PRN #14 tablet PRN Reason: Referrals: YANICK BRANDON FNP-C [Primary Care Provider] - Follow up as needed EDER QUINTANA MD [ACTIVE STAFF] - Follow up as needed
--- NOTE | 2017-10-18 10:01 | RADIOLOGY REPORT (SQ) ---
EXAM DESCRIPTION: KNEE RIGHT 4 VIEWS COMPLETED DATE/TIME: 10/18/2017 9:42 am REASON FOR STUDY: pain medial and posterior and injury COMPARISON: None. NUMBER OF VIEWS: Four views. TECHNIQUE: AP, lateral, and both oblique radiographic images acquired of the right knee. LIMITATIONS: None. FINDINGS: MINERALIZATION: Normal. BONES: No acute fracture or dislocation. No worrisome bone lesions. JOINT: Mild to moderate tricompartmental osteoarthritis most notably involving the patellofemoral com partment. There are several corticated ossific bodies noted lateral to the femoral condyle presumabl y representing intra-articular bodies. No significant joint effusion. SOFT TISSUES: Retained metallic foreign body within the anteromedial soft tissues just above the leve l of the patella. OTHER: No other significant finding. IMPRESSION: DEGENERATIVE CHANGE OF THE RIGHT KNEE ABOVE WITHOUT ACUTE OSSEOUS ABNORMALITY. RETAINED METALLIC FOREIGN BODY. TECHNICAL DOCUMENTATION: JOB ID: [id number] [employer]- All Rights Reserved Reading location - IP/workstation name: [email or web address]
== END 2017-10-18 10:10 | disposition home or self-care (01) ==
LOC: ER 08:52
DX: S89.91XA Unspecified injury of right lower leg, initial encounter (principal); X50.0XXA Overexertion from strenuous movement or load, initial encounter; Y93.K1 Activity, walking an animal; Y92.89 Other specified places as the place of occurrence of the external cause; E78.00 Pure hypercholesterolemia, unspecified; E11.9 Type 2 diabetes mellitus without complications; Z87.891 Personal history of nicotine dependence; Z90.49 Acquired absence of other specified parts of digestive tract; Z90.710 Acquired absence of both cervix and uterus
CPT/HCPCS: 99283; 73564; J3490

== ENCOUNTER → 2018-01-31 | Outpatient (CLI) | payer MEDICAID ==
--- NOTE | 2018-02-01 10:51 | RADIOLOGY REPORT (SQ) ---
EXAM DESCRIPTION: MRI RT LOWER JOINT WITHOUT COMPLETED DATE/TIME: 01/31/2018 5:08 pm REASON FOR STUDY: CHONDROMALACIA PATELLAE, RIGHT KNEE M22.41 CHONDROMALACIA PATELLAE, RIGHT KNEE COMPARISON: None. TECHNIQUE: Rightknee images acquired and stored on PACS. Multiplanar images include fat sensitive s equences as T1, water sensitive sequences as FST2 or STIR, cartilage sensitive sequences as FSPD, and gradient echo sequences. LIMITATIONS: Metal artifact from BB medial aspect. FINDINGS: JOINT AND BURSAE: No effusion. BONE CORTEX AND MARROW: No alteration of signal to suggest marrow replacement. No worrisome bone lesi ons. No occult fracture. ACL: Intact. No degeneration or ganglion cyst. PCL: Intact. MCL: Intact. No periligamentous edema or fluid. LCL: Intact. No periligamentous edema or fluid. MEDIAL MENISCUS: Attenuated. Medial migration. LATERAL MENISCUS: Intact as visualized. MEDIAL COMPARTMENT: Moderate osteophytes. No subchondral edema. LATERAL COMPARTMENT: Mild osteophytes. No subchondral edema. PATELLA: Mild osteophytes. No subchondral edema. EXTENSOR MECHANISM: Intact. Quadriceps and patella tendons normal. SOFT TISSUES: Adjacent muscles and subcutaneous tissues normal. Normal flow void in popliteal artery and vein. OTHER: No other significant finding. IMPRESSION: 1. Technical limitations due to metal artifact. 2. 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 3. Attenuated medial meniscus. Suspect chronic tear. TECHNICAL DOCUMENTATION: JOB ID: [id number] [employer]- All Rights Reserved Reading location - IP/workstation name: [email or web address]
== END ==
LOC: RAD 15:54
PROVIDERS: ATTEND Orthopaedic Surgery
DX: M22.41 Chondromalacia patellae, right knee (principal)

== ENCOUNTER 2019-08-24 12:09 | Emergency (ER) | payer MEDICAID ==
[2019-08-24 12:15] VITALS: BP 125/85
--- NOTE | 2019-08-24 12:24 | ER Document Report ---
HPI - HPI Time Seen by Provider: 08/24/19 12:19 Notes: Patient is a 49-year-old female presenting to the emergency department with cough, congestion and sinus pressure. Patient reports this happens every year around this time when she has severe allergies which leads to bronchitis. Patient reports she has been having a productive cough. She denies any fever or travel outside of the area. - REPRODUCTIVE Reproductive: DENIES: : Past Medical History - General Information source: Patient - Social History Smoking Status: Former Smoker Lives with: Spouse/Significant other Family History: Reviewed & Not Pertinent - Past Medical History Cardiac Medical History: Reports: Hx Hypercholesterolemia, Hx Hypertension Endocrine Medical History: Reports: Hx Diabetes Mellitus Type 2 Renal/ Medical History: Denies: Hx Peritoneal Dialysis Musculoskeletal Medical History: Reports Hx Musculoskeletal Trauma - Fractured pelvis fractured ribs Psychiatric Medical History: Reports: Hx Depression Traumatic Medical History: Reports: Hx Fractures - Pelvis and ribs Past Surgical History: Reports: Hx Abdominal Surgery, Hx Appendectomy, Hx Bowel Surgery - Bowel resection, Hx Section - X3, Hx Cholecystectomy, Hx Hysterectomy, Hx Inguinal Hernia, Hx Oral Surgery - Multiple teeth removed, Hx Umbilical Hernia - Immunizations Hx Diphtheria, Pertussis, Tetanus Vaccination: Yes Vertical Provider Document - CONSTITUTIONAL Notes: PHYSICAL EXAMINATION: GENERAL: Well-appearing, well-nourished and in no acute distress. HEAD: Atraumatic, normocephalic. EYES: Pupils equal round extraocular movements intact, conjunctiva are normal. ENT: Nares with clear rhinorrhea. Oropharynx clear, no exudates no erythema no tonsillar swelling. NECK: Normal range of motion LUNGS: No respiratory distress, lung sounds clear and equal bilaterally. Musculoskeletal: Normal range of motion, NEUROLOGICAL: Normal speech, normal gait. PSYCH: Normal mood, normal affect. SKIN: Warm, Dry, normal turgor, no rashes or lesions noted. - INFECTION CONTROL TRAVEL OUTSIDE OF THE [place] IN LAST 30 DAYS: No Course - Re-evaluation Re-evalutation: Exam consistent with acute bronchitis. Patient has a history of having this every year. She states prednisone and antibiotics are what is usually prescribed. Patient will be discharged home at this time. - Vital Signs Vital signs: Temp Pulse Resp BP Pulse Ox 97.8 F 94 20 125/85 94 08/24/19 12:15 08/24/19 12:15 08/24/19 12:15 08/24/19 12:15 08/24/19 12:15 Discharge - Discharge Clinical Impression: Bronchitis Condition: Stable Disposition: HOME, SELF-CARE Additional Instructions: Please take medications as prescribed. Please increase your fluid intake. Tylenol or ibuprofen for any body aches. Prescriptions: Prednisone [Deltasone 20 mg Tablet] 3 tab PO DAILY 5 Days #15 tablet Doxycycline Hyclate [Vibramycin 100 mg Tablet] 100 mg PO BID #20 tablet Referrals: RAJ NAIR MD [Primary Care Provider] - Follow up as needed
== END 2019-08-24 12:35 | disposition home or self-care (01) ==
LOC: ER 12:09
DX: J40 Bronchitis, not specified as acute or chronic (principal); R05 Cough; J34.89 Other specified disorders of nose and nasal sinuses; I10 Essential (primary) hypertension; E11.9 Type 2 diabetes mellitus without complications; Z87.891 Personal history of nicotine dependence
CPT/HCPCS: 99283